=== PATIENT | male | born 1995 | race Caucasian/White ===

== ENCOUNTER 2019-06-03 14:50 | Emergency (ER) | payer OTHER, MEDICAID ==
[~2019-06-03] VITALS: Ht 182.9 cm; Wt 74.8 kg
[~2019-06-03 14:50] MED LIST: ABILIFY10 MG; ACETAMINOPHEN-1 EAC1 PO; DESYREL; NAPROSYN500 MG PO; TOBREX5 ML OPHTHALMIC; TRAMADOL 50 MG50 MG PO; ZOLOFT
[2019-06-03 15:42] LABS: URINE BLOOD TRACE (Negative); URINE CLARITY SL CLOUDY; URINE COLOR YELLOW; URINE GLUCOSE-RANDOM NEGATIVE (Negative); URINE KETONES TRACE (Negative); URINE NITRITE-REFLEX NEGATIVE (Negative); URINE PROTEIN TRACE (Negative)
[2019-06-03 15:43] LABS: ICTOTEST (BILI CONFIRMATORY) Negative (Negative); URINE BILIRUBIN 1+ (Negative); URINE LEUKOCYTES-REFLEX 2+ (Negative)
[2019-06-03] MEDS ORDERED: DOXYCYCLINE 10100 MG PO (15:44)
[2019-06-03 15:48] LABS: CASTS None Seen /LPF (None Seen); CRYSTALS None Seen /LPF (None Seen); SQUAMOUS 0-3 Few /LPF (0-3); URINE RBC 3-10 Few /HPF (0-2); URINE WBC-REFLEX >25 Many /HPF (0-5)
[2019-06-03 16:18] VITALS: BP 135/82
== END 2019-06-03 16:16 | disposition home or self-care (01) ==
LOC: M.ERS 14:50
PROVIDERS: Emergency Medicine Emergency Medical Services
DX: N34.2 Other urethritis (principal); F17.210 Nicotine dependence, cigarettes, uncomplicated